=== PATIENT | female | born 1985 | race Caucasian/White ===

== ENCOUNTER 2018-11-12 08:17 | Inpatient (IN) | payer MEDICAID ==
[~2018-11-12] VITALS: Ht 157.5 cm; Wt 73.5 kg
[~2018-11-12 08:17] MED LIST: BACTDS PO; FLUC200T52 PO; IBUP-1542 PO; LEVO500T10 PO; PRED20TA PO; PREN1TAB12 PO
[2018-11-12 08:33] VITALS: Ht 157.5 cm; Wt 73.5 kg
[2018-11-12 08:34] VITALS: BP 102/69; PULSE 80; RESP 18
--- NOTE | 2018-11-12 09:46 | TRIAGE ---
OB Triage Datetime Report Generated by CPN: 11/12/2018 09:46 Datetime: 11/12/2018 09:30 Stage of : OB Triage Maternal Assessment Level of Consciousness: Fully Conscious Labor Evaluation Frequency: 2-4 Monitor Mode: External Duration (sec)2399: 50-80 Quality: Mild Resting Tone [place]: Relaxed Heart Rate FHR Baseline Rate: 145 Monitor Mode: External US Variability: Moderate 6-25 bpm Accelerations: 15X15 Decelerations: None Category: Category I Pain Assessment Pain Scale: 0 Pain Goal: 3 Membrane Status: Intact Vaginal Bleeding: Normal Show Datetime: 11/12/2018 08:42 Vaginal Exam Dilatation (cms): 1.0 Effacement (%): 50 Station: -1 Exam By: nelli Vaginal Bleeding: Normal Show Cervix, Consistency: Moderate Cervix, Position: Midposition Datetime: 11/12/2018 08:31 Assessment Type: Triage Maternal Assessment Level of Consciousness: Fully Conscious DTR's/Clonus: DTRs 2+; No Clonus Headache: Denies Blurred Vision: No Respiratory Effort: Unlabored; Regular Rhythm; Equal Expansion Breath Sounds, Left: Clear and Equal Breath Sounds, Right: Clear and Equal Nausea/Vomiting: Denies RUQ Epigastric Pain: Denies Lower Extremities Edema: None Degree: None Upper Extremities Edema: None Degree: None Facial Edema: None Fall Risk Assessment History of Falling: (0) No Secondary Diagnosis: (0) No Ambulatory Aid: (0) Bedrest/Nurse Assist IV Therapy: (0) No Gait: (0) Normal/Bedrest/Immobile Mental Status: (0) Oriented to Own Ability Fall Score: 0 Fall Risk Score Definition: No Risk: No action required Datetime: 11/12/2018 08:30 Time of Arrival: 11/12/2018 08:18 EGA: 40.0 Arrived By: Ambulatory Arrived From: Home Chief Complaint: PT. HERE FOR NST/EFW/SVE Movement: Present Contractions: Irregular Rupture of Membranes: Denies Vaginal Bleeding: Normal Show Vaginal Discharge: Denies Recent Sexual Intercouse: Denies Abdominal Trauma: Not Applicable Patient Complaints: Contractions; Cramping; Back Pain Time Provider Notified: 11/12/2018 09:33 Provider Notified: NELLI Initial Plan: NST/EFW/SVE Datetime: 11/12/2018 08:29 Monitor Mode: External Monitor Mode: External US
[2018-11-12] MEDS ORDERED: IBUPROFEN 600 MG TAB PO PRN (10:00)
[2018-11-12] MEDS ORDERED: BUTORPHANOL 2 MG INJ IV PRN (10:00)
[2018-11-12] MEDS ORDERED: OXYTOCIN 30 UNITS/LR 500 ML IV PRN (10:00)
[2018-11-12] MEDS ORDERED: OXYTOCIN 30 UNITS/LR 500 ML IV SCH ×2 (10:00)
[2018-11-12] MEDS ORDERED: LIDOCAINE 1% (MPF) 30 ML INJ INJ PRN (10:00)
[2018-11-12] MEDS ORDERED: METHYLERGONOVINE 0.2 MG INJ IM PRN (10:00)
[2018-11-12] MEDS ORDERED: CARBOPROST 250 MCG INJ IM PRN (10:00)
[2018-11-12] MEDS ORDERED: MISOPROSTOL 200 MCG TAB PR PRN (10:00)
[2018-11-12] MEDS: LACTATED RINGER'S 1,000 ML IV SCH ×4 (10:11→23:29)
--- NOTE | 2018-11-12 19:23 | PREAC ---
Date/Time of Note Date/Time of Note DATE: 11/12/18 TIME: Anesthesia Eval and Record Evaluation Time Pre-Procedure Interview DATE: 11/12/18 TIME: 19:22 Age 33 Sex female NPO: Other (na) Preoperative diagnosis labor pain Planned procedure epidural Past Medical History Past Medical History: None Surgery & Anesthesia Issues No known issue Meds Anticoagulation: No Beta Aleksandra within 24 hr: No Reason Beta Aleksandra not given: Pt. not on B-Aleksandra Reported Medications Vit/Fe Fumarate/Fa ( 1-1 Tablet) 1 Tab Tablet, 1 TAB PO DAILY 11/11/12 Discontinued Scripts Fluconazole* (Fluconazole*) 200 Mg Tablet, 200 MG PO DAILY for 7 Days, TAB Prov:KNIGHTKORIA V. WOOD FLOORING SPECIALIST 05/26/16 Levofloxacin* (Levofloxacin*) 500 Mg Tablet, 500 MG PO DAILY for 7 Days, TAB Prov:KNIGHTVICENTE V. WOOD FLOORING SPECIALIST 05/26/16 Sulfamethoxazole-Trimethoprim* (Bactrim* DS) 800-160 Mg Tab, 1 TAB PO BID for 7 Days, #14 TAB Prov:VICENTE KNIGHT V. WOOD FLOORING SPECIALIST 05/26/16 Prednisone* (Prednisone*) 20 Mg Tab, 20 MG PO BID for 7 Days, TAB Prov:KNIGHTVICENTE V. WOOD FLOORING SPECIALIST 05/26/16 Ibuprofen* (Motrin*) 600 Mg Tab, 600 MG PO Q6H PRN for PAIN AND OR ELEVATED TEMP, #30 TAB Prov:NICOLAS ELAINE WOOD FLOORING SPECIALIST 05/10/16 Current Medications Lactated Ringer's 1,000 ml @ 125 mls/hr Q8H IV Last administered on 11/12/18at 15:32; Admin Dose 125 MLS/HR; Start 11/12/18 at 09:36 Butorphanol Tartrate (Stadol) 2 mg Q2H PRN IV .PAIN; Start 11/12/18 at 10:00 Lidocaine (Xylocaine 1% (Mpf)) 30 ml ONCE PRN INJ .EPISIOTOMY; Start 11/12/18 at 10:00 Oxytocin/Lactated Ringer's 500 ml @ 500 mls/hr ONCE POST IV ; Start 11/12/18 at 10:00 Oxytocin/Lactated Ringer's 500 ml @ 125 mls/hr POST IV ; Start 11/12/18 at 10:00 Ibuprofen (Motrin) 600 mg ONCE PRN PO .PAIN 1-5; Start 11/12/18 at 10:00 Oxytocin/Lactated Ringer's 500 ml @ 0 mls/hr ONCE PRN IV .VAGINAL BLEEDING; Start 11/12/18 at 10:00 Methylergonovine Maleate (Methergine) 0.2 mg ONCE PRN IM .VAGINAL BLEEDING; Start 11/12/18 at 10:00 Carboprost Tromethamine (Hemabate) 250 mcg ONCE PRN IM .VAGINAL BLEEDING; Start 11/12/18 at 10:00 Misoprostol (Cytotec) 1,000 mcg ONCE PRN DC .VAGINAL BLEEDING; Start 11/12/18 at 10:00 Meds reviewed: Yes Allergies Coded Allergies: No Known Drug Allergies (Verified Allergy, Unknown, 04/07/11) Allergies Reviewed: Yes Labs/Studies Labs Reviewed: Reviewed by anesthesiologist Result Diagram: 11/12/18 1000 Laboratory Tests 11/12/18 10:00 Blood Bank Test 11/12/18 10:00 Antibody Screen NEGATIVE Blood Type O POSITIVE Rh Immune Globulin Candidate NO test: N/A Pre-procedure Exam Last vitals Vital Signs Date Temp Pulse Resp B/P (MAP) Pulse Ox O2 O2 Flow FiO2 Time Delivery Rate 11/12/18 98.3 80 18 102/69 Room Air 08:34 (80) Airway: Adequate mouth opening, Adequate thyromental dist Mallampati: Mallampati II Teeth: Normal Lung: Normal Heart: Normal ASA Physical Status ASA physical status: 2 Emergency: None Pre-operative Attestations Prior to commencing anesthesia and surgery, the patient was re-evaluated, there was verification of: *The patient's identity *The results of appropriate recent lab work and preoperative vital signs *The above evaluation not changing prior to induction *Anesthetic plan, risk benefits, alternative and complications discussed with patient/family; questions answered; patient/family understands, accepts and wishes to proceed. BEE JIMENEZ DO Nov 12, 2018 19:23
[2018-11-12] MEDS ORDERED: FENTAnyl 2MCG/ML-ROPIV 0.2% 100 ML ONE (19:25)
[2018-11-12] MEDS ORDERED: NALOXONE (0.4 MG/ML) INJ IV PRN (19:30)
[2018-11-12] MEDS: FENTAnyl 2MCG/ML-ROPIV 0.2% 100 ML BAG EPI SCH (19:46)
--- NOTE | 2018-11-12 19:47 | PAC ---
Date/Time of Note Date/Time of Note DATE: 11/12/18 TIME: 19:46 Post-Anesthesia Notes Post-Anesthesia Note Last documented vital signs Vital Signs Date Temp Pulse Resp B/P (MAP) Pulse Ox O2 O2 Flow FiO2 Time Delivery Rate 11/12/18 98 82 20 120/65 Room Air 1946 Activity: WNL Respiratory function: WNL Cardiovascular function: WNL Mental status: Baseline Pain reasonably controlled: Yes Hydration appropriate: Yes Nausea/Vomiting absent: Yes BEE JIMENEZ DO Nov 12, 2018 19:47
[2018-11-13] MEDS ORDERED: CEFAZOLIN 2 GM/50 ML (PMX) 50 ML IVPB SCH (01:00)
[2018-11-13] MEDS ORDERED: MINERAL OIL LIGHT 10 ML VIAL TOP PRN (04:00)
[2018-11-13] MEDS: FENTAnyl 2MCG/ML-ROPIV 0.2% 100 ML BAG EPI SCH (04:43)
[2018-11-13] MEDS: LACTATED RINGER'S 1,000 ML IV SCH ×3 (08:22→16:02)
--- NOTE | 2018-11-13 08:40 | PREAC ---
Date/Time of Note Date/Time of Note DATE: 11/13/18 TIME: 08:38 Anesthesia Eval and Record Evaluation Time Pre-Procedure Interview DATE: 11/13/18 TIME: 08:38 Age 33 Sex female NPO: 8 hrs Preoperative diagnosis iup at term with failure to progress Planned procedure primary c section Past Medical History Past Medical History: None Surgery & Anesthesia Issues No known issue Meds Anticoagulation: No Beta Aleksandra within 24 hr: No Reason Beta Aleksandra not given: Pt. not on B-Aleksandra Reported Medications Vit/Fe Fumarate/Fa ( 1-1 Tablet) 1 Tab Tablet, 1 TAB PO DAILY 11/11/12 Discontinued Scripts Fluconazole* (Fluconazole*) 200 Mg Tablet, 200 MG PO DAILY for 7 Days, TAB Prov:VICENTE KNIGHT V. ARCHITECTURE PROFESSOR 05/26/16 Levofloxacin* (Levofloxacin*) 500 Mg Tablet, 500 MG PO DAILY for 7 Days, TAB Prov:VICENTE KNIGHT V. ARCHITECTURE PROFESSOR 05/26/16 Sulfamethoxazole-Trimethoprim* (Bactrim* DS) 800-160 Mg Tab, 1 TAB PO BID for 7 Days, #14 TAB Prov:VICENTE KNIGHT V. ARCHITECTURE PROFESSOR 05/26/16 Prednisone* (Prednisone*) 20 Mg Tab, 20 MG PO BID for 7 Days, TAB Prov:VICENTE KNIGHT V. ARCHITECTURE PROFESSOR 05/26/16 Ibuprofen* (Motrin*) 600 Mg Tab, 600 MG PO Q6H PRN for PAIN AND OR ELEVATED TEMP, #30 TAB Prov:NICOLAS ELAINE ARCHITECTURE PROFESSOR 05/10/16 Current Medications Lactated Ringer's 1,000 ml @ 125 mls/hr Q8H IV Last administered on 11/13/18at 08:22; Admin Dose 125 MLS/HR; Start 11/12/18 at 09:36 Butorphanol Tartrate (Stadol) 2 mg Q2H PRN IV .PAIN; Start 11/12/18 at 10:00 Lidocaine (Xylocaine 1% (Mpf)) 30 ml ONCE PRN INJ .EPISIOTOMY; Start 11/12/18 at 10:00 Oxytocin/Lactated Ringer's 500 ml @ 500 mls/hr ONCE POST IV ; Start 11/12/18 at 10:00 Oxytocin/Lactated Ringer's 500 ml @ 125 mls/hr POST IV ; Start 11/12/18 at 10:00 Ibuprofen (Motrin) 600 mg ONCE PRN PO .PAIN 1-5; Start 11/12/18 at 10:00 Oxytocin/Lactated Ringer's 500 ml @ 0 mls/hr ONCE PRN IV .VAGINAL BLEEDING; S tart 11/12/18 at 10:00 Methylergonovine Maleate (Methergine) 0.2 mg ONCE PRN IM .VAGINAL BLEEDING; S tart 11/12/18 at 10:00 Carboprost Tromethamine (Hemabate) 250 mcg ONCE PRN IM .VAGINAL BLEEDING; Start 11/12/18 at 10:00 Misoprostol (Cytotec) 1,000 mcg ONCE PRN AL .VAGINAL BLEEDING; Start 11/12/18 at 10:00 Naloxone HCl (Narcan) 0.2 mg Q2M PRN IV .RESP RATE; Start 11/12/18 at 19:30 Fentanyl/ Ropivacaine 100 ml EPIDURAL (PCEA) EPI Last administered on 11/13/18at 04:43; Admin Dose 100 ML; Start 11/12/18 at 19:30 Cefazolin Sodium/ Dextrose 50 ml @ 100 mls/hr ONCE IVPB ; Start 11/13/18 at 01:00 Meds reviewed: Yes Allergies Coded Allergies: No Known Allergy (Unverified , 11/12/18) Allergies Reviewed: Yes Labs/Studies Labs Reviewed: Reviewed by anesthesiologist Result Diagram: 11/12/18 1000 Laboratory Tests 11/12/18 10:00 Blood Bank Test 11/12/18 10:00 Antibody Screen NEGATIVE Blood Type O POSITIVE Rh Immune Globulin Candidate NO test: Positive Pre-procedure Exam Last vitals Vital Signs Date Temp Pulse Resp B/P (MAP) Pulse Ox O2 O2 Flow FiO2 Time Delivery Rate 11/12/18 98.3 80 18 102/69 Room Air 08:34 (80) Airway: Adequate mouth opening, Adequate thyromental dist Mallampati: Mallampati I Teeth: Normal Lung: Normal Heart: Normal ASA Physical Status ASA physical status: 2 Emergency: None Planned Anesthetic Neuraxial: Epidural Planned Pain Management Epidural, Parenteral pain med Pre-operative Attestations Prior to commencing anesthesia and surgery, the patient was re-evaluated, there was verification of: *The patient's identity *The results of appropriate recent lab work and preoperative vital signs *The above evaluation not changing prior to induction *Anesthetic plan, risk benefits, alternative and complications discussed with patient/family; questions answered; patient/family understands, accepts and wishes to proceed. DARIELA ORDAZ Nov 13, 2018 08:40
[2018-11-13] MEDS ORDERED: LIDOCAINE 1.5%/EPI MPF (SDV) 30 ML VIAL ONE (08:52)
[2018-11-13] MEDS ORDERED: FENTAnyl 50 MCG/ML VIAL ONE (08:53)
[2018-11-13] MEDS ORDERED: ONDANSETRON 4 MG INJ ONE (09:02)
[2018-11-13] MEDS ORDERED: DEXAMETHASONE 4 MG/ML 1 ML INJ ONE (09:02)
[2018-11-13] MEDS ORDERED: SODIUM BICARBONATE (IV ADD) 50 ML ONE (09:24)
[2018-11-13] MEDS ORDERED: morphine SULFATE/PF (10 MG/10 ML) INJ ONE (09:25)
[2018-11-13] MEDS ORDERED: KETOROLAC 30 MG INJ IV PRN (09:30)
[2018-11-13] MEDS ORDERED: ZOLPIDEM 5 MG TAB PO PRN (09:30)
[2018-11-13] MEDS ORDERED: NALOXONE (0.4 MG/ML) INJ IV PRN (09:30)
[2018-11-13] MEDS ORDERED: HYDROmorphONE 0.5 MG/0.5 ML SYG IV PRN ×2 (09:30)
[2018-11-13] MEDS ORDERED: ONDANSETRON 4 MG INJ IV PRN (09:30)
[2018-11-13] MEDS ORDERED: DIPHENHYDRAMINE 50 MG INJ IV PRN (09:30)
--- NOTE | 2018-11-13 10:03 | HP ---
Date/Time of Note Date/Time of Note DATE: 11/13/18 TIME: 09:59 OB - History Hx of Present Free Text/Dictation 33-year-old female 5 para 2 AB 2 at 40 weeks gestation admitted for complaint of uterine contractions started 9 PM day prior Denies rupture of membrane no vaginal bleeding Last Menstrual Period: February 05, 2018 Estimated Due Date: Nov 12, 2018 : 5 Para: 2 Spontaneous : 2 Care: Good Care Ultrasounds: Normal mid trimester US Obstetrical Complications: None Medical Complications: None, Other (Previous x2) Past Family/Social History * Past Medical, Surgical, Family and Obstetric Histories reviewed from chart. Blood Type: O+ Rubella: immune RPR/VDRL: Negative GBS Status: Negative HBsAG: Negative OB Admission Exam Vital Signs Vital Signs Vital Signs Date Temp Pulse Resp B/P (MAP) Pulse Ox O2 O2 Flow FiO2 Time Delivery Rate 11/12/18 98.3 80 18 102/69 Room Air 08:34 (80) Physical Exam HEENT: WNL Heart: Rhythm Normal Lungs: Clear, Equal Abdomen: WNL Extremities: Normal Reflexes: Normal Cervical Dilatation: None Effacement: 0% Station: -3 Membranes: Intact Heart Rate: 140's Accelerations: Accelerations Present Decelerations: No Decelerations Varibility: Marked Contractions on Admission: 6-10 Minutes Apart Date/Time Contractions Began: 11/12/2018 Frequency of Contractions: Every 5-10 minutes Duration: Over 36 Intensity: Mild Last 72 hours Lab Results CBC & BMP 11/12/18 10:00 OB Assessment/Plan Other Assessment: Term gestation Previous x2 Labor contractions Other plan: Patient was scheduled to have a repeat section ZANDER ALMONTE MD Nov 13, 2018 10:03
[2018-11-13] MEDS ORDERED: KETOROLAC 30 MG INJ IV STA (10:06)
--- NOTE | 2018-11-13 10:06 | OPR ---
Operative Report Planned Procedure Procedure date Nov 13, 2018 Procedure(s) Repeat section Performed by see signature line Fence Post Driver: FLORI PARK Anesthesiologist: DARIELA ORDAZ Pre-procedure diagnosis Term gestation Previous section Labor contraction [id number] Anesthesia Type: Tyakz0i spinal Post-Procedure Post-procedure diagnosis Status post repeat Findings Live Baby in OT position Clear amniotic fluid Normal-appearing right and left fallopian tubes and ovary Estimated Blood Loss: 500 - 600 mls Specimen(s) none Grafts/Implant(s) none Complication(s) none Pt Condition post procedure: stable Disposition: PACU Procedure Description Under satisfactory anaesthesia a Pfannenstiel incision was made two fingerbreadth above and parallel to the symphysis of pubis around the previous scar and previous scar was removed Incision was extended laterally to the border of the Recti muscles on either sides. Incision was carried down with sharp and blunt dissection until fascia was reached. Anterior Recti muscle fascia was incised in mid portion and incision extended laterally to the border of skin incision. Fascia was mobilized from muscle superiorly and Recti muscles were from midline using sharp and blunt dissection. Peritoneum was visualized; Avoiding bowel and bladder it was incised . Incision was extended superiorly and inferiorly. Bladder blade was placed. Posterior peritoneum covering the lower segment of the uterus and lower segment of the uterus were incised.Low transverse uterine incision was made on lower segment of the uterus. Incision extended laterally to the border of Round Lig. on either sides and baby was delivered from OT. position . Amniotic fluid appeared clear. Cord blood was obtained and cord had 3 vessels . Placenta was delivered spontaneously and appeared intact and complete. Intrauterine cavity was rubbed with a laparotomy sponge. Uterine incision was closed in 2 layers using running stitches of No1 Monocryl. Hemostasis appeared secure. Ovaries and Fallopian tubes were within normal limits. Announcing needle, lap sponge and instrument count to be correct abdomen was closed in layers as follows: Peritoneum and Recti muscles with running stitches of 2-0 Vicryl. Fascia with running stitch of No 1 PDS. Subcutaneous tissue with running stitches of 2-0 Monocryl and skin was closed using jackie. Patient tolerated the procedure well and was transferred to [facility] in good condition. AZNDER ALMONTE MD Nov 13, 2018 10:06
[2018-11-13] MEDS ORDERED: AZITHROMYCIN 500MG/NS (PMX) 250 ML IVPB ONE (10:30)
--- NOTE | 2018-11-13 10:58 | PAC ---
Date/Time of Note Date/Time of Note DATE: 11/13/18 TIME: 10:57 Post-Anesthesia Notes Post-Anesthesia Note Last documented vital signs Vital Signs Date Temp Pulse Resp B/P (MAP) Pulse Ox O2 O2 Flow FiO2 Time Delivery Rate 11/12/18 98.3 80 18 102/69 Room Air 10:34 (80) Activity: WNL Respiratory function: WNL Cardiovascular function: WNL Mental status: Baseline Pain reasonably controlled: Yes Hydration appropriate: Yes Nausea/Vomiting absent: Yes DARIELA ORDAZ Nov 13, 2018 10:58
[2018-11-13 12:00] VITALS: BP 118/66; PULSE 72; RESP 18
[2018-11-13 12:30] VITALS: BP 116/60; PULSE 76; RESP 20
[2018-11-13 13:00] VITALS: BP 120/64; RESP 18
[2018-11-13] MEDS ORDERED: OXYTOCIN 30 UNITS/LR 500 ML IV PRN (13:30)
[2018-11-13] MEDS ORDERED: MISOPROSTOL 200 MCG TAB PR PRN (13:30)
[2018-11-13] MEDS ORDERED: METHYLERGONOVINE 0.2 MG INJ IM PRN (13:30)
[2018-11-13] MEDS ORDERED: OXYCODONE/ACETAMINOPHEN (5/325) TAB PO PRN (13:30)
[2018-11-13] MEDS ORDERED: LANOLIN HPA 1 PKT TOP PRN (13:30)
[2018-11-13] MEDS ORDERED: CARBOPROST 250 MCG INJ IM PRN (13:30)
[2018-11-13] MEDS ORDERED: HYDROCODONE/APAP (5/325) TAB PO PRN (13:30)
[2018-11-13] MEDS ORDERED: NA PHOSPHATE/BIPHOS 133 ML ENEMA PR PRN (13:30)
[2018-11-13] MEDS: CEFAZOLIN 2 GM/50 ML (PMX) 50 ML IVPB SCH ×2 (16:01→21:00)
[2018-11-13 16:15] VITALS: BP 106/60; PULSE 73; RESP 18
[2018-11-13 20:30] VITALS: BP 92/51; PULSE 75; RESP 20
[2018-11-13] MEDS: SENNA/DOCUSATE NA (8.6MG/50MG) TAB PO SCH (21:00)
[2018-11-14] VITALS: BP 95/51; PULSE 80; RESP 20
[2018-11-14] MEDS: LACTATED RINGER'S 1,000 ML IV SCH (00:29)
[2018-11-14 04:20] VITALS: BP 101/65; PULSE 81; RESP 18
[2018-11-14] MEDS: CEFAZOLIN 2 GM/50 ML (PMX) 50 ML IVPB SCH (05:01)
[2018-11-14 07:40] VITALS: BP 99/55; PULSE 78; RESP 18
[2018-11-14] MEDS: SENNA/DOCUSATE NA (8.6MG/50MG) TAB PO SCH ×2 (09:13→21:30)
[2018-11-14] MEDS ORDERED: BISACODYL 10 MG SUPP PR ONE (10:30)
[2018-11-14] MEDS: CLINDAMYCIN 300 MG CAP PO SCH ×3 (11:50→23:34)
--- NOTE | 2018-11-14 13:21 | PN ---
Date/Time of Note Date/Time of Note DATE: 11/14/18 TIME: 13:20 Assessment/Plan VTE Prophylaxis VTE Prophylaxis Intervention: ambulation Lines/Catheters IV Catheter Type (from Nrsg): Peripheral IV Assessment/Plan Assessment/Plan Status post postop day #1 Advance diet and ambulate Continue to monitor vital signs Subjective 24 Hr Interval Summary No bowel movement but passing flatus Constitutional: no complaints, improved, ambulates, BM, flatus, urine output Pain Control: well controlled Exam/Review of Systems Vital Signs Vitals Vital Signs Date Temp Pulse Resp B/P (MAP) Pulse Ox O2 O2 Flow FiO2 Time Delivery Rate 11/14/18 99.5 78 18 99/55 (70) Room Air 07:40 11/14/18 97 04:20 Intake and Output 11/13/18 11/13/18 11/14/18 1515:00 23:00 07:00 IntakeIntake Total 1625 ml 750 ml OutputOutput Total 450 ml 250 ml BalanceBalance 1625 ml 300 ml -250 ml Exam Free Text/Dictation Abdomen is soft with present bowel sounds Abdomen does not seem distended Incision is covered Constitutional: alert, oriented, well developed Psych: no complaints, nl mood/affect Head: normocephalic, atraumatic Eyes: nl conjunctiva, EOMI, nl lids, nl sclera ENMT: nl external ears & nose, nl lips & teeth, nl nasal mucosa & septum, mucosa pink and moist Neck: supple, non-tender Respiratory: clear to auscultation, normal air movement Cardiovascular: regular rate and rhythm, nl pulses Gastrointestinal: soft, nl liver, spleen, non-tender Musculoskeletal: nl extremities to inspection, nl gait and stance Extremities: normal pulses Neurological: CLINICAL ACCOUNT EXECUTIVE II-XII intact, nl mental status, nl speech, nl strength Skin: nl turgor, rash or lesions Lymph: nl lymph nodes Results Result Diagram: 11/14/18 0804 ZANDER ALMONTE MD Nov 14, 2018 13:21
[2018-11-14] MEDS: IBUPROFEN 800 MG TAB PO SCH ×2 (14:19→21:30)
[2018-11-14 16:20] VITALS: BP 100/62; PULSE 82; RESP 20
[2018-11-14 20:30] VITALS: BP 111/71; PULSE 87; RESP 18
[2018-11-15 04:12] VITALS: BP 113/76; PULSE 87; RESP 20
[2018-11-15] MEDS: CLINDAMYCIN 300 MG CAP PO SCH ×3 (05:49→17:25)
[2018-11-15] MEDS: IBUPROFEN 800 MG TAB PO SCH ×3 (05:49→21:53)
[2018-11-15 07:40] VITALS: BP 104/70; PULSE 86; RESP 20
[2018-11-15] MEDS: SENNA/DOCUSATE NA (8.6MG/50MG) TAB PO SCH ×2 (09:00→21:53)
[2018-11-15 16:38] VITALS: BP 111/66; PULSE 86; RESP 18
--- NOTE | 2018-11-15 16:43 | DS ---
Date/Time of Note Date/Time of Note DATE: 11/15/18 TIME: 16:42 Discharge Summary Admission/Discharge Info Admit Date/Time Nov 12, 2018 at 09:30 Discharge Date/Time November 15 or November 16, 2018 Discharge Diagnosis Status post repeat Patient Condition: Good Procedures Repeat section Hx of Present Illness 34-year-old female underwent repeat section Hospital Course Patient had uncomplicated hospitalization course was tolerating diet well and ambulating without complications She was discharged home on the third day with good prognosis and condition Home Meds Reported Medications Vit/Fe Fumarate/Fa ( 1-1 Tablet) 1 Tab Tablet, 1 TAB PO DAILY 11/11/12 Discontinued Scripts Fluconazole* (Fluconazole*) 200 Mg Tablet, 200 MG PO DAILY for 7 Days, TAB Prov:VICENTE KNIGHT V. KNOWLEDGE MANAGER 05/26/16 Levofloxacin* (Levofloxacin*) 500 Mg Tablet, 500 MG PO DAILY for 7 Days, TAB Prov:VICENTE KNIGHT NP 05/26/16 Sulfamethoxazole-Trimethoprim* (Bactrim* DS) 800-160 Mg Tab, 1 TAB PO BID for 7 Days, #14 TAB Prov:VICENTE KNIGHT NP 05/26/16 Prednisone* (Prednisone*) 20 Mg Tab, 20 MG PO BID for 7 Days, TAB Prov:VICENTE KNIGHT V. KNOWLEDGE MANAGER 05/26/16 Ibuprofen* (Motrin*) 600 Mg Tab, 600 MG PO Q6H PRN for PAIN AND OR ELEVATED TEMP, #30 TAB Prov:NICOLAS ELAINE NP 05/10/16 Follow-up Plan Patient is to be followed in clinic in 2-3 days for staple removal Primary Care Provider Care Physician No Primary Time spent on discharge: > 30 minutes ZANDER ALMONTE MD Nov 15, 2018 16:43
--- NOTE | 2018-11-15 16:45 | DS ---
Date/Time of Note Date/Time of Note Home today or next day DATE: 11/15/18 TIME: 16:43 Obstetrical Discharge Record Final Diagnosis Final Diagnosis: Term delivered Other Final Diagnosis Status post repeat delivery Section Section: Repeat Condition on Discharge Physical Assessment Last Vitals: See nurse's notes Voiding: Yes Bowel Movement: Yes Breast: Soft, non-tender, Filling Fundus: Firm Abdomen and Incision: Abdomen is soft with present bowel sounds Incision is without induration and or erythema and appears to be healing well Episiotomy: Not applicable Calf Tenderness: No Patient Condition: Good ZANDER ALMONTE MD Nov 15, 2018 16:45
--- NOTE | 2018-11-15 16:47 | PD.PPDC ---
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 Provider Information Physician Information 33-year-old female had repeat Diagnosis [id number] Final Diagnosis: Cmwxs5g Status post Condition Johfy5Ic Patient Condition: Nefje9u Good Diet Niocn6Lu Diet: Sshbw0c Resume Regular Diet Activity/Restrictions Amazc0Jc Activity: Yrenm7b May Shower Wggps5Qu Restrictions: Ogugg4v No Exercising No Lifting Nothing in the Vagina Rkxos5Iz Return to Work or School: Rjqss1i Jan 13, 2019 Wound/Drain Care Instructions [id number] Wound/Drain Care Instructions: Icwzh6z Keep clean and dry Follow-up Follow-up with Physician: 2, 3, Day/Days (In clinic for staple removal) Return to clinic for [id number] 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
[2018-11-15] MEDS ORDERED: IBUP800T48 PO (16:48)
[2018-11-15] MEDS ORDERED: ACET325T33 PO (16:48)
[2018-11-15] MEDS ORDERED: ACETAMINOPHEN 325 MG TAB PO SCH (17:00)
[2018-11-15 19:45] VITALS: BP 103/56; PULSE 92; RESP 19
[2018-11-16] MEDS: CLINDAMYCIN 300 MG CAP PO SCH ×3 (00:06→11:37)
[2018-11-16 03:45] VITALS: BP 109/66; PULSE 77; RESP 18
[2018-11-16] MEDS: IBUPROFEN 800 MG TAB PO SCH ×2 (05:42→13:01)
[2018-11-16] MEDS ORDERED: MEASLES,MUMPS,RUBELLA VACCINE INJ SC* ONE (09:00)
[2018-11-16] MEDS ORDERED: DIPHTH/TET/ACEL PERTUSS (ADULT) 0.5 ML VIAL IM* ONE (09:00)
[2018-11-16] MEDS: SENNA/DOCUSATE NA (8.6MG/50MG) TAB PO SCH (11:37)
== END 2018-11-16 13:35 | disposition home or self-care (01) | DRG 788 ==
LOC: L-D 08:17 → OBT 08:17 → L-D 09:30 → OBT 09:37 → L-D 11-13 08:53 → PP1 11-13 17:09
PROVIDERS: ADMIT Obstetrics & Gynecology; ATTEND Obstetrics & Gynecology
PROC: 4A1HXCZ Monitoring of Products of Conception, Cardiac Rate, External Approach (ICD-10-PCS; 2018-11-12)
PROC: 10D00Z1 Extraction of Products of Conception, Low, Open Approach (ICD-10-PCS; principal; 2018-11-13 07:30)
DX: O34.211 Maternal care for low transverse scar from previous cesarean delivery (principal); O48.0 Post-term pregnancy; O62.1 Secondary uterine inertia; Z3A.40 40 weeks gestation of pregnancy; Z37.0 Single live birth
CPT/HCPCS: 62319; 76815; 85025; 85610; 85730; 86592; 86850; 86900; 86901; 87340; 99464; G0463; J0456; J0690; J1100; J1885; J2274; J2405; J2590; J3010; J7120